=== PATIENT | male | born 1960 | race Caucasian/White ===

== ENCOUNTER 2017-10-25 06:31 | Observation (INO) | payer BC, OTHER ==
[~2017-10-25] VITALS: Ht 175.3 cm; Wt 155.6 kg
[2017-10-25] VITALS (16 sets, daily range): BP systolic 125–151; BP diastolic 63–107
--- NOTE | ~2017-10-25 | EKG ---
[address] [address] ELECTROCARDIOGRAM REPORT Name: JOSS DAILEY Room #: [address] [place] [address] Gerhard#: [id number] Admission: 10/25/17 Attend Phys: Chris Hopper MD, Discharge: 10/26/17 Date of : 64 Report #: [id number] THIS REPORT FOR: //name// [facility] Test Date: 2017-10-26 Test Time: 02:37:09 Pat Name: JOSS DAILEY Department: Room: [facility] Gender: M Crime Victim Specialist: [facility] : 1960 Requested By: Chris Hopper Order Number: [id number] MD: Jesus Rodrigez Measurements Intervals [place] Rate: 84 P: 53 RI: 166 QRS: -4 QRSD: 97 T: 85 QT: 391 QTc: 463 Interpretive Statements Sinus rhythm Consider anterior infarct Compared to ECG 05/26/2015 09:03:09 Myocardial infarct finding now present Poor R-wave progression no longer present Electronically Signed On 10-27-2017 8:15:47 [address] DRIVER by Jesus Rodrigez [email or web address] <ELECTRONICALLY SIGNED> By: Jesus Rodrigez MD 10/27/17 0815 0237 0237 Jesus Rodrigez MD /EPI
--- NOTE | ~2017-10-25 | D ---
[facility] [place] [address] DISCHARGE SUMMARY Name: JOSS DAILEY Room #: 212-P ZAMZAM Hennessy#: [id number] Admission: 10/25/17 Attend Phys: Chris Hopper MD, Discharge: 10/26/17 Date of : 64 Report #: [id number] THIS REPORT FOR: //name// CC: Chris Escalante [facility] COURSE: The patient is a 57-year-old male, patient of Dr. Fish Escalante. We have been following up proximal mid LAD lesion. He began having some stable anginal symptoms, this is from a cardiac catheterization 3 months ago. He was admitted here to repeat cardiac catheterization. Subsequently, he had progression of this proximal mid LAD lesion now to 95+ percent. This involved a right angle takeoff of a diagonal branch, which was moderate in size. I dilated and stented that LAD with a 2.75 x 18 Resolute drug-eluting stent. I postdilated that up to 20 atmospheres, which is 3.3 mm in size with SUSAN grade 3 flow, no dissection or thrombus formation. He is allergic to ASPIRIN, so we have previously treated him with Brilinta 90 mg b.i.d. I will add Pletal 100 mg b.i.d. No lifting for 48 hours. No lying in tub, Jacuzzi, or jones for a week. No MRI or dental work for 3 months. He has a followup scheduled with Dr. Escalante and myself in 3 months. His discharge medications will include Pletal 100 b.i.d., Brilinta 90 b.i.d., albuterol, Lipitor 40, Lasix 80, and Aldactone 50 mg b.i.d. Low fat, low sodium, cholesterol diet. Continue slow gradual weight loss. Aerobic activity strongly recommended. Consideration of bariatric surgery in the future would be of some benefit him, he has lost 10 pounds, he is in the 400 pound range still. DISCHARGE DIAGNOSES: 1. Coronary artery disease, successful PTCA stent of the proximal mid left anterior descending as stated above. 2. Hypertension. 3. Hypercholesterolemia. 4. Morbid obesity. 5. Diabetes. Thank you for assist in the care of this patient. <ELECTRONICALLY SIGNED> By: Chris Hopper MD, [facility] 11/10/17 0800 0822 1010 Chris Hopper MD, FACC /nt
--- NOTE | ~2017-10-25 | CATHLAB ---
[facility] [address] INVASIVE PROCEDURE REPORT Name: JOSS DAILEY Room #: 212-P [facility] IN .R.#: [id number] Admission: 10/25/17 Attend Phys: Chris Hopper, Discharge: 10/26/17 Date of : 64 Date of Service: 10/26/17 1313 Report #: [id number] THIS REPORT FOR: //name// APPROVED REPORT Patient Details Patient Status: Out-Patient Room #: The patient is a 57 year-old male Event Personnel Chris Hopper Concrete Form Setter, Reji Pro Penny, Wes RN Procedures Performed Left Heart Cath w/or w/o Coronaries [id number] [facility] Place w/wo Plasty Single LAD [id number] Hemostasis w/ Mynx Procedure Narrative The Right Groin^ was infiltrated with 1% Lidocaine subcutaneous anesthesia. A PINNACLE 6FR Sheath #[id number] sheath was inserted into the RFA^. Coronary angiography was performed using coronary diagnostic catheters. The right coronary system was accessed and visualized with a JR4 catheter. The left coronary system was accessed and visualized with a JL4 catheter. The left ventricle was accessed and visualized with a PIGTAIL catheter. Closure device was deployed with a 6 Fr MYNXGRIP 6/7F #[id number]. The patient tolerated the procedure well and there were no complications associated with the procedure. There was no hematoma. Intraoperative Conscious Sedation Sedation start time: 8.39 Case end Time: 9.15 Fentanyl 50.0 mcg Versed 2.0 mg Fluoro Time: 6.14 minutes Dose: 1810 mGy Contrast Type and Amount: Omnipaque 190 ml Hemodynamics The aortic pressure is 135/79 mmHg with a mean of 103 mmHg. The left ventricular pressure is 138/13 mmHg with a mean of mmHg. PCI Technique Lesion Percutaneous coronary intervention was performed on the mid left anterior descending artery segment. A LAUNCHER 6FR EBU [address] #[id number] [facility] [address] [place] [address] INVASIVE PROCEDURE REPORT Name: ASHLIEJOSS Room #: 212-P [facility] IN [facility].#: [id number] Admission: 10/25/17 Attend Phys: Chris Hopper, Discharge: 10/26/17 Date of : 64 Date of Service: 10/26/17 1313 Report #: [id number] Guide Catheter was used to engage the LCA ostium. A Luge Wire .014 x 182CM #[id number] Interventional Guidewire was used to cross the lesion. BALLOON DILATION A Balloon catheter Sprinter OTW 2.5 x 15 #[id number] was inserted and inflated up to 12.00atm for 13seconds. Additional Inflation: 14.00atm for 38seconds. STENT DEPLOYMENT A drug-eluting stent RESOLUTE RX 2.75 X 18 #[id number] was inserted and inflated up to 16.00atm for 32seconds. Additional Inflation: 20.00atm for 30seconds. Conclusion #1 successful PTCA stent 98% proximal LAD lesion placement of a 2.75 x 18 resolute drug-eluting stent postdilated 3.3 mm in size diagonal branch is jailed brisk flow into the diagonal branch no occlusive disease #2 left main free of disease #3 circumflex OM nondominant but moderate in size with mild irregularities distally this is a dominant vessel. #4 small nondominant right no occlusive disease #5 normal left ventricular size and systolic function EF 60% Recommendations plan continue aggressive risk factor modification. No lifting for 48 hours no line tub Jacuzzi or [place] for a week. No MRI or dental work for 3 months. Patient is ASPIRIN allergic. Will use Brilinta il 90 mg twice a day and will add Pletal 100 mg twice a day. <ELECTRONICALLY SIGNED> By: Chris Hopper MD, FACC 10/26/17 1313 12 12 Chris Hopper MD, FACC /INF
--- NOTE | ~2017-10-25 | EKG ---
[address] [address] ELECTROCARDIOGRAM REPORT Name: JOSS DAILEY Room #: 212-[facility] M.RAlisa#: [id number] Admission: 10/25/17 Attend Phys: Chris Hopper MD, Discharge: 10/26/17 Date of : 64 Report #: [id number] THIS REPORT FOR: //name// [facility] Test Date: 2017-10-26 Test Time: 07:13:27 Pat Name: JOSS DAILEY Department: Room: 212 Gender: M Principle Software Engineer: harish : 1960 Requested By: Chely Napoles Order Number: [id number] MD: Jesus Rodrigez Measurements Intervals [place] Rate: 82 P: 28 MD: 155 QRS: 2 QRSD: 96 T: 69 QT: 391 QTc: 457 Interpretive Statements Sinus rhythm Consider anterior infarct Compared to ECG 05/26/2015 09:03:09 Myocardial infarct finding now present Poor R-wave progression no longer present Electronically Signed On 10-27-2017 8:15:58 POST TRONIC MACHINE OPERATOR by Jesus Rodrigez [email or web address] <ELECTRONICALLY SIGNED> By: Jesus Rodrigez MD 10/27/1715 2 2 Jesus Rodrigez MD /EPI
--- NOTE | ~2017-10-25 | EKG ---
[place] [address] [facility] [place] [address] ELECTROCARDIOGRAM REPORT Name: JOSS DAILEY Room #: 212-[facility]..#: [id number] Admission: 10/25/17 Attend Phys: Chris Hopper MD, Discharge: 10/26/17 Date of : 64 Report #: [id number] THIS REPORT FOR: //name// [facility] Test Date: 2017-10-25 Test Time: 07:03:35 Pat Name: JOSS DAILEY Department: Room: [facility] Gender: M Rehabilitation Services Director: Hebert TREJO : 1960 Requested By: Chris Hopper Order Number: [id number] MD: Luiz Pearce Measurements Intervals [place] Rate: 90 P: 45 OR: 164 QRS: -12 QRSD: 96 T: 88 QT: 374 QTc: 458 Interpretive Statements Sinus rhythm Poor R wave progression Compared to ECG 05/26/2015 09:03:09 No significant change was found Electronically Signed On 10-27-2017 7:40:04 ALGORITHM DESIGN ENGINEER by Luiz Pearce [email or web address] <ELECTRONICALLY SIGNED> By: Luiz Pearce MD, [facility] 10/27/17 0740 2 2 Luiz Pearce MD, [facility] /EPI
[~2017-10-25 06:31] MED LIST: ALDACTONE25 MG PO; BYSTOLIC 5 MG5 M1 PO; CHLORTHALIDONE25 MG PO; COZAAR 50 MG TA50 M2 PO; DEMADEX20 MG PO; GLUCOPHAGE1000 MG PO; K-DUR 20 MEQ T20 MEQ PO; LANTUS100 UNIT/M SUBQ; LASIX 40 MG TAB40 M2 PO; LORZONE375 MG PO; PRILOSEC40 MG PO; VENTOLIN HFA 1818 GM INH
[2017-10-25] MEDS ORDERED: LASIX 80 MG TAB80 MG PO (06:49)
[2017-10-25] MEDS ORDERED: ATORVASTATIN CA40 MG PO (06:49)
[2017-10-25] MEDS ORDERED: BRILINTA60 MG PO (06:51)
[2017-10-25] MEDS ORDERED: ALTACE10 MG PO (06:52)
[2017-10-25] MEDS ORDERED: BRILINTA90 MG PO (15:43)
[2017-10-26 00:30] VITALS: BP 140/72
[2017-10-26 02:24] VITALS: BP 137/68
[2017-10-26 03:31] LABS: HEMATOCRIT 42.4 % (42.0-52.0); HEMOGLOBIN 14.1 gm/dL (14.0-18.0); MCH 28.2 pg (26.0-34.0); MCHC 33.2 g/dL (28.0-37.0); RBC 4.99 mil/uL (4.50-6.00); RDW 14.2 % (10.5-14.5); WBC 8.6 thou/uL (4.0-11.0)
[2017-10-26 03:36] VITALS: BP 120/51
[2017-10-26 03:45] LABS: ANION GAP 6 mmol/L (7-16); BUN 27 mg/dL (7-18); CHLORIDE 95 mmol/L (98-107); CO2 31 mmol/L (21-32); CREATININE 1.1 mg/dL (0.7-1.3); GLUCOSE 371 mg/dL (74-106); POTASSIUM 4.5 mmol/L (3.5-5.1); SODIUM 132 mmol/L (136-145); TROPONIN-I < 0.04 ng/mL (<0.06)
[2017-10-26 05:38] VITALS: BP 120/51
[2017-10-26 07:59] VITALS: BP 139/77
[2017-10-26] MEDS ORDERED: CILOSTAZOL 100100 M1 PO (08:23)
[2017-10-26 10:51] VITALS: BP 139/77
[2018-05-31] MEDS ORDERED: LYRICA 50 MG50 MG PO (01:21)
[2018-05-31] MEDS ORDERED: SEROQUEL 50 MG50 MG PO (01:22)
[2018-05-31] MEDS ORDERED: MIRAPEX 0.250.25 M1 PO (01:23)
[2018-05-31] MEDS ORDERED: PROTONIX40 M1 PO (01:32)
[2018-05-31] MEDS ORDERED: PERCOCET PO (01:34)
[2018-05-31] MEDS ORDERED: SORINE 80 MG TA80 M1 PO (01:35)
[2018-05-31] MEDS ORDERED: SPIRONOLACTONE25 M1 PO (01:36)
[2018-05-31] MEDS ORDERED: ELIQUIS5 MG PO (01:37)
[2018-05-31] MEDS ORDERED: ATORVASTATIN CA40 MG PO (01:38)
[2018-05-31] MEDS ORDERED: CEFUROXIME500 MG PO (01:39)
[2018-05-31] MEDS ORDERED: CLEOCIN HCL300 MG PO (01:41)
[2018-05-31] MEDS ORDERED: PLAVIX 75 MG TA75 M1 PO (01:41)
[2018-05-31] MEDS ORDERED: LASIX 80 MG TAB80 MG PO (01:43)
[2018-05-31] MEDS ORDERED: HUMULIN N100 UNIT/1 SUBQ (20:13)
[2018-05-31] MEDS ORDERED: HUMULIN R100 UNIT/M SUBQ (20:16)
[2018-06-11] MEDS ORDERED: DEMADEX20 MG PO (14:04)
[2018-06-11] MEDS ORDERED: RAMIPRIL5 MG PO (16:05)
[2018-06-11] MEDS ORDERED: LEVALBUTER0.63 MG/3 NASAL (16:10)
[2018-06-12] MEDS ORDERED: ALTACE10 MG PO (10:23)
[2018-06-12] MEDS ORDERED: XOPENEX0.63 MG/3 NASAL (10:24)
[2018-06-15] MEDS ORDERED: KEFLEX500 M1 PO (13:53)
[2018-06-15] MEDS ORDERED: PERCOCET 10-321 EACH PO (13:55)
== END 2017-10-26 11:45 | disposition home or self-care (01) ==
LOC: CATH 06:31 → 2N 07:36 → CATH 08:04 → ENTRNSPT 10-26 11:24 → EDTRNSPTSTS 10-26 11:26 → 2N 10-26 11:45
PROVIDERS: Internal Medicine Cardiovascular Disease
DX: I25.10 Atherosclerotic heart disease of native coronary artery without angina pectoris (principal); I10 Essential (primary) hypertension; E78.00 Pure hypercholesterolemia, unspecified; E66.01 Morbid (severe) obesity due to excess calories; E11.9 Type 2 diabetes mellitus without complications; K21.9 Gastro-esophageal reflux disease without esophagitis; G47.33 Obstructive sleep apnea (adult) (pediatric)

== ENCOUNTER 2018-12-29 16:36 | Inpatient (IN) | payer BC, OTHER ==
[~2018-12-29] VITALS: Ht 177.8 cm; Wt 165.8 kg
--- NOTE | ~2018-12-29 | EEG ---
[facility] [place] [address] ELECTROENCEPHALOGRAM Name: JOSS DAILEY Room #: 238-P ADM IN M.R.#: [id number] ������������������ Admission: 12/29/18 ������������������ Attend Phys: Jazmin Jensen MD Discharge: ������������������ Date of : 64 Report #: [id number] ����������������������������������������������������������������� [id number] THIS REPORT FOR: //name// CC: JEANNE Jensen DATE OF SERVICE: 12/31/2018 INTERPRETATION: This patient is being evaluated for the possibility of hypoxic encephalopathy. EEG was done by placing the electrode by standard 10-20 system of electrode placement. Both referential and sequential montages were used for recording. Background activity in this patient's EEG is about 4-5 Hz and 10-15 microvolts. This is a low voltage and pretty significantly abnormal EEG. Triphasic waves appeared to be present in the frontally predominant fashion. Photic stimulation is unremarkable. IMPRESSION: This is a severely abnormal EEG, which is consistent with the diagnosis of encephalopathy. However, well-defined cortical activity is still present. Thank you very much for this referral. ���������������������������������������� ���������������������������������������� By: ��������������������������������������������� 1421 1702 Martin Harper MD /nt
--- NOTE | ~2018-12-29 | HC ---
[facility] [place] [address] CONSULTATION Name: ASHLIEJOSS Room #: 238-P ADM IN M.R.#: [id number] Admission: 12/29/18 ������������������ Attend Phys: Karl Zarate MD Discharge: ������������������ Date of : 64 Report #: [id number] THIS REPORT FOR: //name// CC: Karl DECKER DATE OF SERVICE: 12/30/2018 REASON FOR THE CONSULTATION: Post-cardiac arrest, acute kidney injury. HISTORY OF PRESENT ILLNESS: This is limited given the fact that the patient is currently intubated. He is a morbidly obese patient with diabetes mellitus, hypertension, obstructive sleep apnea, Charcot right ankle, status post fusion in 11/21/2018 for which he was operated upon in [place]. His hospital course there was complicated and he stayed for about 20 days. He had acute kidney injury per records. Then, he was discharged to a rehab facility. He developed heart failure and acute kidney injury and was admitted to [facility]. He was discharged back to rehab; however, on this past Monday, the patient became ill and was admitted to [facility] with shortness of breath and hypoxemia. Apparently, the patient was transported here after discussing his case with his metal sprayer production and transportation medical personnel reported that the patient became unresponsive. He had an episode of PEA and asystole. He also had ventricular fibrillation and required a code blue initiation. He was intubated accordingly and was in acute respiratory failure with very bad CO2 narcosis. Creatinine was around 1.2 as of 11/2017. They had been steadily rising ever since. Most recent labs from today revealed that the patient's sodium is 133, potassium 6.2, BUN is 54 and a creatinine of 2.7. Phosphorus was 6. He has a mildly elevated troponin. I am being consulted to manage his acute kidney injury. MEDICATIONS: 1. Sotalol. 2. Spironolactone. 3. Atorvastatin. 4. Ramipril. 5. Torsemide. PAST MEDICAL HISTORY: 1. Diabetes mellitus. 2. Hypertension. 3. Coronary artery disease. 4. Obstructive sleep apnea. 5. Left hip dislocation. 6. Morbid obesity. 7. Cellulitis of the right elbow. 8. Ischemic heart disease. [address] [address] CONSULTATION Name: JOSS DAILEY Room #: 238-P [facility] IN .R.#: [id number] Admission: 12/29/18 ������������������ Attend Phys: Karl Zarate MD Discharge: ������������������ Date of : 64 Report #: [id number] 9. Charcot right ankle. SOCIAL HISTORY: No reported drug or alcohol abuse. FAMILY HISTORY: Unobtainable given the patient's mental status. REVIEW OF SYSTEMS: Unobtainable given the patient's mental status. PHYSICAL EXAMINATION: GENERAL: He is intubated, maintained on dopamine. VITAL SIGNS: Blood pressure is 140/78, pulse rate is 60. HEAD AND NECK: Elevated jugular venous pressure. CHEST: Crackles bilaterally. CARDIOVASCULAR: Distant. ABDOMEN: Soft, nontender, morbidly obese. LOWER EXTREMITIES: +3 edema. LABORATORY DATA: Reviewed. Blood gas revealed a pH of 7.3 with a pCO2 of 56. Lactate is 2.3. Sodium is 133. Potassium 6.2. BUN is 54, creatinine is 2.7. ASSESSMENT, IMPRESSION, PLAN: 1. Acute kidney injury. 2. Status post cardiac arrest with ventricular fibrillation pulseless electrical activity and asystole. 3. Acute respiratory failure. 4. Elevated lactic acid. 5. Coronary artery disease. 6. Diabetes mellitus. 7. Hypertension. 8. Very critical and sick condition. Currently, we will manage his hyperkalemia appropriately with the appropriate medications. 9. We will initiate a Lasix drip. 10. Pulmonary managing his respiratory acidosis and CO2 narcosis. 11. Hemodynamic support with pressors. 12. Avoid fluid. 13. Septic workup had been initiated. 14. Avoid nephrotoxins. 15. Very critical and sick condition. We will continue to follow along and discuss further plans including hemodialysis with his family members. ��������������������������������������������� ���������������������������������������� By: ��������������������������������������������� 0903 2216 Ryan Denton MD /dk
--- NOTE | ~2018-12-29 | EEG ---
[facility] [place] [address] ELECTROENCEPHALOGRAM Name: JOSS DAILEY Room #: 238-P ADM IN M.R.#: [id number] ������������������ Admission: 12/29/18 ������������������ Attend Phys: Jazmin Jensen MD Discharge: ������������������ Date of : 64 Report #: [id number] ����������������������������������������������������������������� [id number] THIS REPORT FOR: //name// CC: JEANNE Jensen DATE OF SERVICE: 01/02/2019 This patient is being evaluated for hypoxic encephalopathy. EEG was done by placing the electrode by standard 10-20 system of electrode placement. Both referential and sequential montages were used for recording. Background activity is extremely low voltage and is seen only on 2 or 3 microvolt, may be about 4-5 Hz and almost always less than 5 microvolt. Photic stimulation is unremarkable. IMPRESSION: This is a severely abnormal EEG consistent with severe encephalopathy. EEG has deteriorated since last time. Only very low voltage activity appeared to be present. Clinical correlation is recommended. ���������������������������������������� ���������������������������������������� By: ��������������������������������������������� 1236 1320 Martin Harper MD /nt
--- NOTE | ~2018-12-29 | HC ---
[facility] [place] [address] CONSULTATION Name: ASHLIEJOSS Room #: 238-P ADM IN .R.#: [id number] Admission: 12/29/18 ������������������ Attend Phys: Karl Zarate MD Discharge: ������������������ Date of : 64 Report #: [id number] THIS REPORT FOR: //name// CC: Karl DECKER DATE OF SERVICE: 12/30/2018 CONSULTATION: Infectious Diseases. HISTORY OF PRESENT ILLNESS: The patient is a 58-year-old white male status post cardiac arrest. Infectious Disease consultation was requested to evaluate and treat for possible infection component. The patient was in his usual health until he underwent surgery for a Charcot joint in his ankle on 11/21/[address] Whitten at [facility]. His postoperative course was complicated by his diabetes, heart failure and renal insufficiency. He required 20 days in the hospital before he was stabilized and then discharged around 12/11/2018 to acute rehab in [place], [place], where he lives. The patient was in rehab for about 7 days when he again had exacerbation of heart and kidney failure. He was admitted to the local acute care hospital [facility] for about 4 days and then returned to rehab. He continued at rehab until 12/21/2018, when again he had to be admitted to acute care in [place] for the same issue. His doctors there were having issues with fluid management with the heart failure and kidney failure. So, it was elected to transfer him to [facility] for a more comprehensive management. He was placed in a transport van of come to [facility] on 12/29/2018. While in transport, the patient became unresponsive and the transport initiated a code blue event. 911 was activated and the EMS from [facility] met the transport in the field and took over the code. The patient required CPR, had several doses of epinephrine and was ventilated via a bag mask device as he was transported to [facility], which was the [facility]. The ER there continued the code blue event, including intubation, mechanical ventilation, epinephrine cardioversion and medication. The patient did return to pulseless electrical activity and then return of the spontaneous circulation. He then was placed in the ambulance and transported acutely to [facility], where he arrived last night at 5 minutes before midnight. He was admitted to the ICU. He continued on ventilation and was treated with the hypothermic protocol for anoxic brain injury. In this setting, Infectious Disease consultation was requested. PAST MEDICAL HISTORY: The patient has a past history, which includes diabetes. His says his hemoglobin A1c would run around 10. He has hyperlipidemia, hypertension and morbid obesity. Other diagnoses include coronary artery disease with 2 episodes of angioplasty, diastolic dysfunction with a preserved ejection fraction and COPD. His baseline creatinine during the previous hospitalizations was 1.6 to 2. Apparently at one point, it was as high as 2.[address] [address] CONSULTATION Name: POSTJOSS HELTONN Room #: 238-P [facility] IN M.R.#: [id number] Admission: 12/29/18 ������������������ Attend Phys: Karl Zarate MD Discharge: ������������������ Date of : 64 Report #: [id number] during the course of the described events. ALLERGIES: THE PATIENT HAS ALLERGIES TO [place], WHICH CAUSES A COUGH AND NONSTEROIDAL ANTI-INFLAMMATORY DRUGS BECAUSE OF POTENTIAL RENAL TOXICITIES. FAMILY HISTORY: Positive for diabetes. SOCIAL HISTORY: The patient is . He lives in [place], [place] with his . They have a grown son. He worked as an insurance independent agent. No history of tobacco, alcohol or drugs. REVIEW OF SYSTEMS: Unavailable as the patient is sedated on a ventilator. PHYSICAL EXAMINATION: GENERAL: On examination, the patient appears his stated age, unresponsive on a ventilator, but comfortable and in no distress. VITAL SIGNS: Show the patient's temperature is 93.2 on the hypothermia protocol. Blood pressure 149/78, pulse 60 and respirations 22. SKIN: Cool and has some ecchymoses from medical interventions, but no other rash, lesion or exanthem. The right lower extremity is in a fiberglass cast. The says this was last changed about 2 weeks ago and the wound looks fine and most of the stitches were removed. ENT EXAMINATION: Unremarkable, except for the expected nasogastric and endotracheal tubes. HEART: Heart sounds distant S1, S2. LUNGS: Breath sounds diminished, but normal. ABDOMEN: Belly is obese, soft, somewhat tympanitic, without any signs of tenderness. No peripheral edema. LABORATORY DATA: The white count is 10.6, hemoglobin 11.8 and platelet 175,000. Electrolytes: Sodium 133, potassium 6.2, chloride 92, bicarbonate 34, BUN 54 and creatinine 2.7 with very little urine output. Liver function tests show early elevation of SGOT at 103, SGPT 79 and alkaline phosphatase at 157. BNP elevated at 2762. Procalcitonin elevated at 8.8. Lactate was 8.7, now down to 2.1. Chest x-ray shows no acute infiltrates. SUMMARY: In summary, we have a diabetic with preexisting heart disease, lung disease and kidney disease, who had a code blue event while in transport to acute care. He had apparently a fairly extensive cardiac resuscitation and is now in the ICU post code. One should consider the possibility that infection might have been one of the events precipitating the acute heart attack, although there is nothing in the history to suggest anything like that. Prolonged code blue event certainly puts the patient at risk for an aspiration. The patient had been in acute care or rehabilitation since 11/21/2018. So, he would certainly be colonized with [facility] [address] [place] [address] CONSULTATION Name: ASHLIEJOSS Room #: 238-P [facility] IN [facility]#: [id number] Admission: 12/29/18 ������������������ Attend Phys: Karl Zarate MD Discharge: ������������������ Date of : 64 Report #: [id number] nosocomial tracy. At this time, I concur with the use of broad-spectrum antibiotic therapy, including vancomycin, Zosyn and Levaquin at doses appropriate for renal failure, pending results of the cultures. We have cultures of blood and sputum. I will order urine. We should have an orthopedist coordinating with Dr. Whitten and possibly remove the cast to examine the wound to make sure this is not a source of infection as well. I appreciate the opportunity of input in the care of this complex gentleman. Dr. Moran will return tomorrow and assume followup Infectious Disease care. If there is no sign of infection and just a cardiac arrest, we may be able to discontinue antibiotics relatively soon. However, given the patient's critical condition, empiric therapy for now would be appropriate. Thank you for this consultation. ��������������������������������������������� ���������������������������������������� By: ��������������������������������������������� 1353 0209 Wilfred Zaldivar MD /dk
[~2018-12-29 16:36] MED LIST changes: +ALTACE10 MG PO; +ATORVASTATIN CA40 MG PO; +BRILINTA60 MG PO; +BRILINTA90 MG PO; +CEFUROXIME500 MG PO; +CILOSTAZOL 100100 M1 PO; +CLEOCIN HCL300 MG PO; +ELIQUIS5 MG PO; +HUMULIN N100 UNIT/1 SUBQ; +HUMULIN R100 UNIT/M SUBQ; +KEFLEX500 M1 PO; +LASIX 80 MG TAB80 MG PO; +LEVALBUTER0.63 MG/3 NASAL; +LYRICA 50 MG50 MG PO; +MIRAPEX 0.250.25 M1 PO; +PERCOCET 10-321 EACH PO; +PERCOCET PO; +PLAVIX 75 MG TA75 M1 PO; +PROTONIX40 M1 PO; +RAMIPRIL5 MG PO; +SEROQUEL 50 MG50 MG PO; +SORINE 80 MG TA80 M1 PO; +SPIRONOLACTONE25 M1 PO; +XOPENEX0.63 MG/3 NASAL
[2018-12-30] VITALS (154 sets, daily range): BP systolic 77–178; BP diastolic 36–96
[2018-12-30 00:38] LABS: BE(vivo) 6.2 mmol/L (-2 to +3); HCO3 36.5 mmol/L (22.0-26.0); PO2 475.1 mmHg (80.0-100.0); sO2 99.8 % (92.0-98.0)
[2018-12-30 00:39] LABS: PCO2 89.3 mmHg (35.0-45.0); pH 7.229 (7.360-7.450)
--- NOTE | 2018-12-30 01:00 | NUR ---
Pt admit in ICU for post witness cardiac arrest. He is being tx to room 238 , accompanied by EMS staffs. He appears unresponsive. No sedation .GCS 3 upon arrival. Currently on vent, RR mid 20's. [place] For[place] sputum is notes via ETT. Lung sound very coarse. O2 sat 100 . NGT on Left nare, some bloody drainage notes possible trauma from NGT placement. He is on dopamine gtt at 5 mcg/kg min when he arrived. NSR on monitor. Will obtain EKG sta.Poor IV access. Only LAC IV is working. LLE IO is unable to flush. it seems to be clotted off. Multiple RNs attempted to gain IVs access w/o any success. Will notify for consultation and assist for line placement. Cooling blanket applied. Initiate hypothermia protocol at 0045. Will continue to monitor him closely.
--- NOTE | 2018-12-30 01:15 | NUR ---
Spoke with pt's regarding of central line placement. She is awares of risks and benefits. Consent obtained for Central line placement by .
[2018-12-30 01:37] LABS: HEMATOCRIT 38.5 % (42.0-52.0); HEMOGLOBIN 11.8 gm/dL (14.0-18.0); MCH 27.3 pg (26.0-34.0); MCHC 30.7 g/dL (28.0-37.0); MCV 88.8 fL (80.0-100.0); PLATELET COUNT 175 thou/uL (150-400); RBC 4.34 mil/uL (4.50-6.00); RDW 18.1 % (10.5-14.5); WBC 10.6 thou/uL (4.0-11.0)
--- NOTE | 2018-12-30 01:50 | NUR ---
is here. He tied to place central line multiple time w/o any success. ER nurse able to gained access after multiple attempts. Will obtain labs per hypothermia protocol.
--- NOTE | 2018-12-30 01:51 | NUR ---
ATTEMPTED TO PLACE CENTRAL LINE MULTIPLE TIME W/O ANY SUCCESS. SEVERAL RN ALSO TRIED TO GET AN ACCESS. I/O IS CLOTTED OFF. ER NURSE ABLE TO PLACED IV ON RT AC. BLOOD OBTAINED AND SENT TO LAB.
[2018-12-30 02:06] LABS: BE(vivo) 7.1 mmol/L (-2 to +3); HCO3 36.7 mmol/L (22.0-26.0); pH 7.269 (7.360-7.450); sO2 93.1 % (92.0-98.0)
[2018-12-30 02:19] LABS: ALBUMIN 3.4 g/dL (3.4-5.0); CALCIUM 8.8 mg/dL (8.5-10.1); CREATININE 2.4 mg/dL (0.7-1.3); TOTAL BILIRUBIN 1.5 mg/dL (<0.1-1.0); TOTAL PROTEIN 7.8 g/dL (6.4-8.2)
[2018-12-30 02:22] LABS: POTASSIUM 6.3 mmol/L (3.5-5.1)
[2018-12-30 02:27] LABS: ABSOLUTE NEUTROPHILS 9.4 thou/uL (1.4-8.2); ANISOCYTOSIS 2+; LARGE PLATELETS FEW; MYELOCYTES 1 %
[2018-12-30 03:55] LABS: APTT 36.2 Seconds (24.5-32.8); INR 1.1
[2018-12-30 04:08] LABS: D-DIMER 3.43 ug/mLFEU (0.19-0.50)
[2018-12-30 04:13] LABS: FIBRINOGEN 503.5 mg/dL (210-360)
--- NOTE | 2018-12-30 07:00 | NUR ---
Pt remain in critical conditions. Continue to be on hypothermia protocol. Unable to start insulin gtt due to no access. Order received from to place PICC line this am.
[2018-12-30 07:56] LABS: BE(vivo) 4.6 mmol/L (-2 to +3); HCO3 31.3 mmol/L (22.0-26.0); PCO2 56.6 mmHg (35.0-45.0); pH 7.361 (7.360-7.450); sO2 97.6 % (92.0-98.0)
[2018-12-30 08:19] LABS: APTT 37.6 Seconds (24.5-32.8); INR 1.2; PROTIME 12.8 Seconds (9.3-11.4)
[2018-12-30 08:22] LABS: CALCIUM 8.5 mg/dL (8.5-10.1); CREATININE 2.7 mg/dL (0.7-1.3); MAGNESIUM 2.2 mg/dL (1.8-2.4)
[2018-12-30 08:25] LABS: POTASSIUM 6.2 mmol/L (3.5-5.1); TROPONIN-I 1.02 ng/mL (<0.06)
--- NOTE | 2018-12-30 12:54 | 2DMMODE ---
[facility] [place] [address] 2 D/M-MODE ECHOCARDIOGRAM Name: JOSS DAILEY Room #: 238-P ADM IN M.R.#: [id number] ������������� Admission: 12/29/18 ������������� Attend Phys: Karl Zarate MD Discharge: ��� ������������� ��� Date of : 64 Date of Service: 12/30/18 1254 �� Report #: [id number] �������� ��������������������������������������������[id number] THIS REPORT FOR: //name// APPROVED REPORT Study performed: 12/30/2018 11:55:51 EXAM: Comprehensive 2D, Doppler, and color-flow Echocardiogram Patient Location: ICU Room #: 238 Status: stat BSA: 2.76 HR: 56 bpm BP: 154/86 mmHg Rhythm: Bradycardia Other Information Study Quality: Technically DifficultTechnically Limited Indications S^P Arrest Echo Enhancing Agent Indication: Endocardial border delineation Agent(s) / Amount(s) Used: Optison 3 cc 2D Dimensions IVSd: 10.47 (7-11mm) LVOT Diam: 21.60 (18-24mm) LVDd: 58.79 mm PWd: 10.94 (7-11mm) Ascending Ao: 32.57 (22-36mm) LVDs: 45.90 (25-40mm) Aortic Root: 30.92 mm Aortic Valve AoV Peak Deny.: 1.12 m/s AO Peak Gr.: 5.02 mmHg LVOT Max P.92 mmHg LVOT Max V: 0.85 m/s HEDY Vmax: 2.79 cm2 Mitral Valve E/A Ratio: 1.6 MV Decel. Time: 188.57 ms MV E Max Deny.: 1.06 m/s MV A Deny.: 0.65 m/s [facility] [place] [address] 2 D/M-MODE ECHOCARDIOGRAM Name: JOSS DAILEY Room #: 238-[facility] IN [facility].#: [id number] ������������� Admission: 12/29/18 ������������� Attend Phys: Karl Zarate MD Discharge: ��� ������������� ��� Date of : 64 Date of Service: 12/30/18 1254 �� Report #: [id number] �������� ��������������������������������������������[id number] MV PHT: 54.68 ms IVRT: 110.73 ms Pulmonary Valve PV Peak Deny.: 0.96 m/s PV Peak Gr.: 3.66 mmHg Left Ventricle Left ventricle is dilated. There is normal LV segmental wall motion. There is normal left ventricular wall thickness. The left ventricular systolic function is normal. The left ventricular ejection fraction is within the normal range. LVEF is 50% This study is not technically sufficient to allow evaluation of the LV diastolic function. Right Ventricle Right ventricle is not well visualized. Right ventricle is grossly normal in size. The right ventricular systolic function is normal. Atria Left atrium is not well visualized. Right atrium is not well visualized. Aortic Valve The aortic valve is not well visualized. Aortic valve is grossly normal in structure. No aortic regurgitation is present. There is no aortic valvular stenosis. Mitral Valve The mitral valve is normal in structure. There is no mitral valve regurgitation noted. No evidence of mitral valve stenosis. Tricuspid Valve The tricuspid valve is not well visualized. There is no tricuspid valve regurgitation noted. Pulmonic Valve Pulmonic valve is not well visualized. There is no pulmonic valvular regurgitation. Great Vessels The aortic root is normal in size. IVC is not well visualized. Pericardium There is no pericardial effusion. [facility] [place] [address] 2 D/M-MODE ECHOCARDIOGRAM Name: JOSS DAILEY Room #: 238-P ADM IN M.R.#: [id number] ������������� Admission: 12/29/18 ������������� Attend Phys: Karl Zarate MD Discharge: ��� ������������� ��� Date of : 64 Date of Service: 12/30/18 1254 �� Report #: [id number] �������� ��������������������������������������������[id number] <Conclusion> There is normal left ventricular wall thickness. The left ventricular systolic function is normal. The left ventricular ejection fraction is within the normal range. LVEF is 50% Right ventricle is not well visualized. Right ventricle is grossly normal in size. Left atrium is not well visualized. Right atrium is not well visualized. The aortic valve is not well visualized. Aortic valve is grossly normal in structure. No aortic regurgitation is present. There is no aortic valvular stenosis. The mitral valve is normal in structure. There is no mitral valve regurgitation noted. No evidence of mitral valve stenosis. The tricuspid valve is not well visualized. There is no tricuspid valve regurgitation noted. IVC is not well visualized. There is no pericardial effusion. ��������������������������������������������� <ELECTRONICALLY SIGNED> ���������������������������������������� By: Jesus Rodrigez MD ��������������������������������������������� 12/30/18 1254 1254 1254 Jesus Rodrigez MD /INF
[2018-12-30 13:50] LABS: BASOPHILS 0.4 % (0.0-2.0); HEMATOCRIT 35.8 % (42.0-52.0); HEMOGLOBIN 11.2 gm/dL (14.0-18.0); LYMPHOCYTES 2.9 % (24.0-44.0); MCH 27.1 pg (26.0-34.0); MCHC 31.3 g/dL (28.0-37.0); MCV 86.5 fL (80.0-100.0); MONOCYTES 6.9 % (1.0-8.0); PLATELET COUNT 166 thou/uL (150-400); POLYS 89.8 % (36.0-66.0); RBC 4.14 mil/uL (4.50-6.00); RDW 17.9 % (10.5-14.5); WBC 7.8 thou/uL (4.0-11.0)
[2018-12-30 13:58] LABS: ALBUMIN 2.8 g/dL (3.4-5.0); CREATININE 2.8 mg/dL (0.7-1.3); PHOSPHORUS 6.4 mg/dL (2.5-4.9); POTASSIUM 5.3 mmol/L (3.5-5.1)
[2018-12-30 14:01] LABS: CALCIUM 8.1 mg/dL (8.5-10.1); CREATININE 2.8 mg/dL (0.7-1.3); MAGNESIUM 2.1 mg/dL (1.8-2.4); PHOSPHORUS 6.3 mg/dL (2.5-4.9); POTASSIUM 5.3 mmol/L (3.5-5.1)
[2018-12-30 14:01] LABS: APTT 38.4 Seconds (24.5-32.8); INR 1.3; PROTIME 13.5 Seconds (9.3-11.4)
[2018-12-30 14:08] LABS: TROPONIN-I 0.87 ng/mL (<0.06)
--- NOTE | 2018-12-30 14:26 | NUR ---
VASCULAR ACCESS CONSULTED FOR A CL FOR THIS PT WHO IS A POST CODE AND NOW HAS A NONFUNCTIONING IO IN HIS LT LEG. UNSUCCESSFUL ATTEMPTS BY MD'S PRIOR TO ARRIVAL. PT IS MORBILY OBESE AND HIS RT IJ IS NON-COMPRESSIBLE VIA US ASSESS. LT IJ WAS WIDELY PATENT BUT SEVERAL CM DEEP IN NECK FOLDS. TUNNELED NEEDLE BACK IN CHEST TO KEEP THE INSERTION SITE OUT OF SKIN FOLDS. THE CATHETER ENTERS THE VESSEL IN THE UPPER IJ LEVEL AND THE LUNG WAS NOT COMPROMISED. THE CXR REVEALED THE TIP IN THE SVC AND IS RELEASED FOR USE. LINE IS NOT COILED IN THE IJ, IT IS MINI-TUNNLED UP TO THE UPPER IJ AND DROPPED DOWN.
--- NOTE | 2018-12-30 17:50 | HC ---
[facility] [address] [place] [address] CONSULTATION Name: JOSS DAILEY Room #: 238-P ADM IN M.R.#: [id number] Admission: 12/29/18 ������������������ Attend Phys: Karl Zarate MD Discharge: ������������������ Date of : 64 Report #: [id number] THIS REPORT FOR: //name// CC: Karl DECKER REFERRAL PHYSICIAN: Dr. Zarate. REASON FOR REFERRAL: Cardiac arrest. HISTORY OF PRESENT ILLNESS: The patient is a 58-year-old white male who was transferred from [facility] following a cardiac arrest. A pulmonary consultation was requested. The patient was initially hospitalized at [facility] for a few days for heart failure and pneumonia along with acute renal injury. Clinically, he was not improving. Decision was made to transfer the patient to [facility]. He is followed by Dr. Chris Hopper, his product marketing engineer. According to records, en route on the highway the patient became unresponsive. On the telemetry he was in PEA and then asystole. CPR was given. Call was made to [facility]. Following the cardiac arrest CPR was given. The patient became asystolic and PEA again. He was given epinephrine x 2. Subsequently, rhythm changed to ventricular fibrillation. He was cardioverted with 200 joules. Sinus rhythm was obtained. CPR was resumed as the providers could not feel a pulse. He was then seen at the local Emergency Room at [place], [place]. He was intubated with an 8 mm ET tube. Placement was confirmed with a chest x-ray. Chest x-ray revealed bilateral patchy infiltrates. There was pink frothy sputum noted from the ET tube. The patient was then transferred to [facility] ICU. He has a peripheral IV and an intraosseous IV placed. PAST MEDICAL HISTORY: Notable for morbid obesity, SHANA, coronary artery disease, hypertension, paroxysmal atrial fibrillation, kidney injury. He apparently was recently hospitalized at [facility] for an ankle fracture for which he underwent surgery. He was there for about a month and a half. PAST SURGICAL HISTORY: As mentioned above. ALLERGIES: ASPIRIN, LOSARTAN, NONSTEROIDAL. MEDICATIONS: List on transfer in the [facility]. FAMILY HISTORY: Noncontributory. [facility] [address] [place] [address] CONSULTATION Name: JOSS DAILEY Room #: 238-P [facility] IN M.R.#: [id number] Admission: 12/29/18 ������������������ Attend Phys: Karl Zarate MD Discharge: ������������������ Date of : 64 Report #: [id number] SOCIAL HISTORY: No history of tobacco or alcohol use. REVIEW OF SYSTEMS: Deferred as the patient is intubated. PHYSICAL EXAMINATION: GENERAL: He is not responsive. VITAL SIGNS: Pulse is 90, blood pressure reads systolic around 116-130 mmHg, though I could not feel a femoral pulse or a carotid pulse adequately. This may be related to body habitus. HEENT: Normocephalic, atraumatic. The patient is orally intubated. There is pink frothy sputum emanating from the ET tube. NECK: Supple. No masses felt. CHEST: Coarse breath sounds bilaterally. CARDIOVASCULAR: Heart sounds are distant. No obvious murmurs or gallop. Pulse again, I could not adequately feel a femoral pulse or a radial pulse, though the Dinamap is reading a blood pressure around 110-130 mmHg systolic. ABDOMEN: Obese, soft, nontender, no masses felt. GENITOURINARY: Deferred. RECTAL: Deferred. EXTREMITIES: Cool to touch, moderately cyanotic. Note the patient was recently placed on hypothermia protocol. NEUROLOGIC: Deferred at this time. LABORATORY DATA: Chest x-ray shows increased interstitial marking, patchy infiltrates seen in the mid right lung field, borderline cardiomegaly. ET tube is approximately 3 cm above the luis. Arterial blood gas performed revealed pH 7.22, pCO2 of 89, pO2 of 475. Rest of the laboratory data is pending. Laboratory data from the outside hospital include electrolytes from earlier today, sodium 138, potassium 4.9, chloride 96, CO2 is 44, BUN is 40, creatinine is 2.4. EKG shows left bundle branch block. IMPRESSION: 1. Out of hospital cardiac arrest with initial rhythm showing pulseless electrical activity, then asystole, and eventually ventricular fibrillation. Epinephrine was given along with cardioversion. He is currently in normal sinus rhythm. Etiology at this time appears to be acute congestive heart failure as a cause for his cardiac arrest. EKG shows left bundle branch block. Arterial ischemia cannot be ruled out. 2. Acute hypercapnic hypoxic respiratory failure. The patient has a history of obstructive sleep apnea with his obesity, obesity hypoventilation syndrome is likely. 3. Cardiogenic pulmonary edema. 4. History of chronic kidney disease. 5. Questionable history of pneumonia. 6. Apparent history of chronic obstructive pulmonary disease. [facility] [address] [place] [address] CONSULTATION Name: JOSS DAILEY Room #: 238-P ADM IN Gerhard#: [id number] Admission: 12/29/18 ������������������ Attend Phys: Karl Zarate MD Discharge: ������������������ Date of : 64 Report #: [id number] 7. History of coronary artery disease, undergoing stent placement in 2017 with a history of ischemic cardiomyopathy. 8. Diabetes mellitus. RECOMMENDATION: I will continue mechanical ventilation, agree with hypothermia protocol. Diuresis as tolerated, though the patient had been hypotensive since arrival to the ICU. He is currently on dopamine. The patient had been bradycardic, dopamine has improved his heart rate from 60s to 90s. I think it is reasonable to continue broad-spectrum antibiotics for presumed pneumonia, though heart failure is more likely. We will need to monitor neurologic status as there are concerns for possible hypoxic brain injury. Central line was attempted. Again, as mentioned above, I could not palpate a femoral pulse bilaterally despite Dinamap reading a systolic of 110-130. We will ask for assistance for central line placement with ultrasound guidance if possible. Peripheral IV has been started. Thank you for this consultation. ��������������������������������������������� <ELECTRONICALLY SIGNED> ���������������������������������������� By: Waldemar Elias MD ��������������������������������������������� 12/30/18 1750 0200 1458 Waldemar Elias MD /nt
--- NOTE | 2018-12-30 19:59 | EKG ---
[address] [place] [employer] [place] [address] ELECTROCARDIOGRAM REPORT Name: JOSS DAILEY Room #: 238-P ADM IN M.R.#: [id number] ������������������ Admission: 12/29/18 ������������������ Attend Phys: Karl Zarate MD Discharge: ������������������ Date of : 64 Report #: [id number] ����������������������������������������������������������������� [id number] THIS REPORT FOR: //name// [facility] Test Date: 2018-12-30 Test Time: 00:45:33 Pat Name: JOSS DAILEY Department: Room: 238 P Gender: M Remote Control Mirror Installer: dagoberto : 1960 Requested By: Waledmar Elias Order Number: [id number] MD: Corwin Travis Measurements Intervals [place] Rate: 63 P: 36 RI: 177 QRS: 49 QRSD: 154 T: 73 QT: 506 QTc: 519 Interpretive Statements Sinus rhythm Left bundle branch block Compared to ECG 05/31/2018 06:42:45 No significant changes Electronically Signed On 12-30-2018 19:59:38 ASSISTANT SIGNAL MAINTAINER by Corwin Travis [email or web address] ��������������������������������������������� <ELECTRONICALLY SIGNED> ���������������������������������������� By: Corwin Travis MD ��������������������������������������������� 12/30/181958 45 004 Corwin Travis MD /RENÉ
[2018-12-30 20:13] LABS: URINE BILIRUBIN NEGATIVE (Negative); URINE BLOOD 2+ (Negative); URINE CLARITY CLEAR; URINE COLOR YELLOW; URINE GLUCOSE-RANDOM* NEGATIVE (Negative); URINE KETONES NEGATIVE (Negative); URINE LEUKOCYTES-REFLEX NEGATIVE (Negative); URINE NITRITE-REFLEX NEGATIVE (Negative); URINE PROTEIN (DIPSTICK) 2+ (Negative); URINE SPECIFIC GRAVITY 1.025 (1.005-1.035); URINE UROBILINOGEN 0.2 E.U./dl (0.2-1.0)
--- NOTE | 2018-12-30 20:18 | NUR ---
END OF SHIFT NOTE. PT REMAINS ON HYPOTHERMIA PROTOCOL. CURRENTLY SEDATED ON DIPRIVAN. JERKING MOVEMENTS HAS STOPPED. LASIX GTT. POOR URINE OUTPUT. DUE TO REWARM AT 0100. OOZING SLIGHTLY FROM OLD IV STICKS. INSULIN GTT. STILL NO RESPONSE.
[2018-12-30 20:19] LABS: ABSOLUTE NEUTROPHILS 6.6 thou/uL (1.4-8.2); BASOPHILS 0.1 % (0.0-2.0); HEMOGLOBIN 11.9 gm/dL (14.0-18.0); LYMPHOCYTES 2.9 % (24.0-44.0); MCH 28.1 pg (26.0-34.0); MCV 85.3 fL (80.0-100.0); MONOCYTES 1.7 % (1.0-8.0); PLATELET COUNT 151 thou/uL (150-400); POLYS 95.3 % (36.0-66.0); RBC 4.22 mil/uL (4.50-6.00); RDW 17.9 % (10.5-14.5)
--- NOTE | 2018-12-30 20:20 | NUR ---
SEE PAPER CHARTING FOR VS AND GTT TITRATIONS.
[2018-12-30 20:27] LABS: CASTS None Seen /LPF (None Seen); MUCUS 0-3 Light strn/LPF (None Seen); SQUAMOUS None Seen /LPF (0-3)
[2018-12-30 20:29] LABS: BACTERIA-REFLEX None Seen /HPF (None Seen); CRYSTALS None Seen /LPF (None Seen); URINE RBC 0-2 Rare /HPF (0-2); URINE WBC-REFLEX None Seen /HPF (0-5)
[2018-12-30 20:38] LABS: APTT 38.9 Seconds (24.5-32.8); INR 1.3; PROTIME 13.5 Seconds (9.3-11.4)
[2018-12-31] VITALS (54 sets, daily range): BP systolic 93–168; BP diastolic 46–88
--- NOTE | 2018-12-31 01:00 | NUR ---
TEMP 32.6 STARTED ON PASSIVE REWARMING AT 0100 . REMAINS NONRESPONSIVE DOPAMINE GTT AT 1 MCG AND PROPOFOL GTT 20 MCG. SINUS RHYTHM. WILL CONT TO MONITOR.
[2018-12-31 02:15] LABS: ABSOLUTE NEUTROPHILS 9.3 thou/uL (1.4-8.2); BASOPHILS 0.1 % (0.0-2.0); HEMATOCRIT 33.8 % (42.0-52.0); HEMOGLOBIN 10.8 gm/dL (14.0-18.0); LYMPHOCYTES 1.9 % (24.0-44.0); MCV 84.4 fL (80.0-100.0); MONOCYTES 8.1 % (1.0-8.0); PLATELET COUNT 184 thou/uL (150-400); POLYS 89.9 % (36.0-66.0); RDW 17.6 % (10.5-14.5); WBC 10.3 thou/uL (4.0-11.0)
[2018-12-31 02:22] LABS: ALBUMIN 2.6 g/dL (3.4-5.0); APTT 38.3 Seconds (24.5-32.8); CALCIUM 8.1 mg/dL (8.5-10.1); CREATININE 3.2 mg/dL (0.7-1.3); INR 1.3; MAGNESIUM 2.1 mg/dL (1.8-2.4); PHOSPHORUS 5.5 mg/dL (2.5-4.9); PROTIME 13.4 Seconds (9.3-11.4)
[2018-12-31 02:24] LABS: POTASSIUM 4.2 mmol/L (3.5-5.1)
[2018-12-31 05:21] LABS: BE(vivo) 5.1 mmol/L (-2 to +3); HCO3 32.2 mmol/L (22.0-26.0); PCO2 60.4 mmHg (35.0-45.0); PO2 85.3 mmHg (80.0-100.0); pH 7.345 (7.360-7.450); sO2 95.7 % (92.0-98.0)
--- NOTE | 2018-12-31 06:00 | NUR ---
REMAINS INTUBATED. PROPOFOL AND DOPAMINE GTTS TITRATED OFF. SUCTIONBED FOR A MOD AMT PINK TO BLOOD TINGED SPUTUM FROM ET TUBE AND A MOD AMT BLOODY ORAL SECRETIONS. TEMP 97.5 HYPOTHERMIA GOAL MET. ELISABETH CONBT TO MONITOR.
--- NOTE | 2018-12-31 06:00 | NUR ---
INSULIN GTT AT 8 UNITS NOW ACCUCHECK 123 LASIX GTT AT 20 MG 700 CC UO AND 400 CC NG TUBE DRAINAGE THIS SHIFT. COMPETE BED BATH GIVEN. HAD A LARGE SOFT BROWN STOOL. REMAINS UBNRESPONSIVE. CONT WITH REWARMING.
[2018-12-31 06:42] LABS: HEMATOCRIT 32.6 % (42.0-52.0); HEMOGLOBIN 10.6 gm/dL (14.0-18.0); MCH 27.7 pg (26.0-34.0); MCHC 32.6 g/dL (28.0-37.0); MCV 84.9 fL (80.0-100.0); RBC 3.84 mil/uL (4.50-6.00); RDW 17.7 % (10.5-14.5); WBC 11.6 thou/uL (4.0-11.0)
[2018-12-31 06:49] LABS: CREATININE 3.3 mg/dL (0.7-1.3); POTASSIUM 4.7 mmol/L (3.5-5.1)
--- NOTE | 2018-12-31 12:53 | HC ---
[facility] [address] [place] [address] CONSULTATION Name: ASHLIEJOSS Room #: 238-P ADM IN M.R.#: [id number] Admission: 12/29/18 ������������������ Attend Phys: Jazmin Jensen MD Discharge: ������������������ Date of : 64 Report #: [id number] THIS REPORT FOR: //name// CC: Karl DECKER DATE OF SERVICE: 12/30/2018 HISTORY OF PRESENT ILLNESS: The patient is a 58-year-old male who is now on a cooling protocol. Apparently, he was transferred here from [facility]. En route, the patient became unresponsive and emergency services stopped at [facility]. Once the patient was stabilized, he was then brought up to [facility]. While en route, the patient became pulseless then developed asystole, then atrial fibrillation. He was given epinephrine and shocked. Once he was stabilized, the transfer to [place] continued. Currently, the patient is on a cooling protocol, had been given vecuronium. He is also on propofol 20 mcg. According to the nurse, the warming process will begin at approximately 10:00 p.m. this evening. The patient has a past medical history of ankle fusion in October. His stay was complicated by congestive heart failure and acute renal failure and he spent approximately 20 days in the hospital, he was then transferred to a rehab center in [place], [place]. One week later, he developed congestive heart failure and was admitted to [facility] and he spent 4 days there and then was transferred back to rehab. On Monday, he became ill again and was readmitted to [place] for complaints of shortness of air. PAST MEDICAL HISTORY: Coronary artery disease, congestive heart failure, restless leg syndrome, gastroesophageal reflux, hyperlipidemia, diabetes. PAST SURGICAL HISTORY: Coronary artery stents, right ankle surgery. MEDICATIONS: At home include Lyrica 50 mg at bedtime, Seroquel 50 mg at bedtime, Mirapex 0.25 mg at bedtime, Protonix 40 mg daily, sotalol 80 mg b.i.d., spironolactone 25 mg b.i.d., Eliquis 5 mg b.i.d., Lipitor 40 mg daily, Plavix 75 mg daily, Humulin insulin 55 units subq b.i.d., ramipril 5 mg daily, torsemide 40 mg daily. ALLERGIES: NONSTEROIDAL ANTI-INFLAMMATORIES, ASPIRIN, ALBUTEROL, LOSARTAN. PHYSICAL EXAMINATION: VITAL SIGNS: Temperature 34 degrees, heart rate 53, oxygen saturation 100% on room air, respirations 22, blood pressure 172/95. [address] [address] CONSULTATION Name: JOSS DAILEYN Room #: 238-P [facility] IN M.R.#: [id number] Admission: 12/29/18 ������������������ Attend Phys: Jazmin Jensen MD Discharge: ������������������ Date of : 64 Report #: [id number] LABORATORY DATA: White blood cell count 7.8, hemoglobin 11.2, hematocrit 35.8, MCV 86.5, platelet count 166,000. Coagulation: PT 13.5, PTT 38.4. Sodium 132, potassium 5.3, chloride 92, carbon dioxide 33, BUN 61, creatinine 2.8, GFR 24. Glucose 373. Lactic acid 1.8, calcium 8.1, phosphorus 6.3, magnesium 2.1, total bilirubin 1.5, AST 103, ALT 79, alkaline phosphatase 157. NEUROLOGIC: Pupils pinpoint. No oculocephalic or corneal reflexes are present. There are no spontaneous movements of the extremities. The patient is on propofol. The nurse stated to me that when the patient was not on sedation, he had some jerking movements in the proximal upper extremities. IMPRESSION: This patient may have had anoxic injury. However, at this point, we cannot know the outcome. He will begin the warming process at 10:00 p.m. and tomorrow, I will order an electroencephalogram if we could try to take the patient off propofol prior to the EEG that would be very helpful, so we can get a better idea as to the patient's prognosis. The patient will be seen by either Dr. Munoz or Dr. Harper tomorrow. The patient may also need either a CT scan of the head or an MRI of the head, depending on his examination tomorrow and the results of the EEG. ��������������������������������������������� <ELECTRONICALLY SIGNED> ���������������������������������������� By: Aby Gardner DO ��������������������������������������������� 12/31/18 1253 1436 0558 Aby Gardner DO /nt
--- NOTE | 2018-12-31 13:35 | NUR ---
CM ASSESSMENT: CASE OPENED FOR DC PLANNING. CLINICAL INFO REVIEWED. PT ADMITTED POST CODE, ON VENT, HYPOTHERMIA PROTOCOL DONE AND REWARMED NOW WITH PLAN FOR EEG TODAY. PT LIVES WITH SPOUSE PETTY IN HOUSE IN [place], [place]. PT HAS HOME O2 AND TRILOGY IN PLACE. PCP IS JEANNE DECKER. UNCLEAR DC PLAN AT PRESENT, WILL NEED TO EVAL NEURO STATUS AND MAKE PLANS BASED ON MEDICAL ISSUES.
--- NOTE | 2018-12-31 14:59 | EKG ---
[address] [address] ELECTROCARDIOGRAM REPORT Name: JOSS DAILEY Room #: 238-P ADM IN M.R.#: [id number] ������������������ Admission: 12/29/18 ������������������ Attend Phys: Jazmin Jensen MD Discharge: ������������������ Date of : 64 Report #: [id number] ����������������������������������������������������������������� [id number] THIS REPORT FOR: //name// [facility] Test Date: 2018-12-31 Test Time: 08:47:30 Pat Name: JOSS DAILEY Department: Room: 238 P Gender: M Electrical Assembly Supervisor: JUAN CARLOS : 1960 Requested By: Chely Fields Order Number: [id number] MD: Jesus Rodrigez Measurements Intervals [place] Rate: 90 P: 28 [place]: 164 QRS: 33 QRSD: 147 T: 129 QT: 437 QTc: 535 Interpretive Statements Sinus rhythm Left bundle branch block Compared to ECG 12/30/2018 00:45:33 No significant changes Electronically Signed On 12-31-2018 14:59:46 PLC ENGINEER by Jesus Rodrigez [email or web address] ��������������������������������������������� <ELECTRONICALLY SIGNED> ���������������������������������������� By: Jesus Rodrigez MD ��������������������������������������������� 12/31/18 1459 6 6 Jesus Rodrigez MD /RENÉ
--- NOTE | 2018-12-31 17:13 | NUR ---
PETTY DAILEY, , INFORMED RN THAT SHE WANTED A DNR STATUS. CALL PLACED TO DR. SHARMA.
--- NOTE | 2018-12-31 17:42 | NUR ---
ATTEMPTED TO PAGE DR. WRIGHT X 2 TO NOTIFY OF VANC0 TROUGH-32. PHONE IS NOT TURNING OVER TO THE ANSWERING SERVICE. VANCO DOSE HELD AT THIS TIME.
--- NOTE | 2018-12-31 19:15 | NUR ---
SHIFT SUMMARY: PT RESPONDS TO CORNEAL REFLEX, NO RESPONSE TO DEEP PAIN, COUGH/GAG REFLEX, ALL EXTREMITIES FLACCID, BREATHING ABOVE VENT SET RATE, SR, L CHEST TLC SITE BLOODY- REINFORCED, SUCTIONING MUCUSY CLOTS FROM NOSE WHEN PT TRANSFERRED TO BIG BOY BED, BLOOD IN BACK OF MOUTH RELATED TO POST NASAL BLEEDING, TOLERATING VENT SCANT FROTHY VERY THIN SECRETION NOTED IN ETT WHICH SPONTANEOUSLY RESOLVED, NG PATENT WITH BILE GREEN DRAINAGE, MACK WITH LARGE AMOUNT URINE OUTPUT RELATED TO LASIX GTT. BLOOD GLUCOSE CONTROLLED WITH INSULIN GTT. DR. OHARA REVIEWED EEG RESULTS, ASSESSED PT, THEN SPOKE WITH , DAUGHTER AND OTHER FAMILY MEMBERS ON PT STATUS. LATER REQUESTED DNR STATUS, DR. SHARMA NOTIFIED OF HER WISHES, NO CODE STATUS IMPLEMENTED. CAST REMAINS ON R LOWER EXTREMITY, TOES WITH CAP REFILL LESS THAN 3 SECONDS. REPORT TO MILAD JOSHI.
[2019-01-01] VITALS (43 sets, daily range): BP systolic 102–143; BP diastolic 53–72
[2019-01-01 04:27] LABS: HEMATOCRIT 30.4 % (42.0-52.0); HEMOGLOBIN 9.9 gm/dL (14.0-18.0); MCH 27.4 pg (26.0-34.0); MCHC 32.4 g/dL (28.0-37.0); MCV 84.3 fL (80.0-100.0); RBC 3.61 mil/uL (4.50-6.00); RDW 18.8 % (10.5-14.5); WBC 12.2 thou/uL (4.0-11.0)
[2019-01-01 04:41] LABS: ALBUMIN 2.4 g/dL (3.4-5.0); CALCIUM 7.5 mg/dL (8.5-10.1); PHOSPHORUS 6.7 mg/dL (2.5-4.9); POTASSIUM 5.2 mmol/L (3.5-5.1)
[2019-01-01 04:43] LABS: CREATININE 4.3 mg/dL (0.7-1.3)
[2019-01-02] VITALS (30 sets, daily range): BP systolic 79–178; BP diastolic 35–79
[2019-01-02 01:47] LABS: HEMATOCRIT 36.9 % (42.0-52.0); HEMOGLOBIN 11.6 gm/dL (14.0-18.0); MCH 26.5 pg (26.0-34.0); MCHC 31.3 g/dL (28.0-37.0); MCV 84.6 fL (80.0-100.0); RBC 4.37 mil/uL (4.50-6.00); RDW 17.9 % (10.5-14.5); WBC 13.4 thou/uL (4.0-11.0)
[2019-01-02 01:52] LABS: ALBUMIN 2.9 g/dL (3.4-5.0); CREATININE 4.9 mg/dL (0.7-1.3); PHOSPHORUS 7.5 mg/dL (2.5-4.9)
[2019-01-02 01:55] LABS: POTASSIUM 5.6 mmol/L (3.5-5.1)
[2019-01-02 02:21] LABS: ALBUMIN 2.9 g/dL (3.4-5.0); CALCIUM 7.8 mg/dL (8.5-10.1); CREATININE 4.9 mg/dL (0.7-1.3); MAGNESIUM 2.4 mg/dL (1.8-2.4); TOTAL BILIRUBIN 0.7 mg/dL (<0.1-1.0); TOTAL PROTEIN 7.5 g/dL (6.4-8.2)
[2019-01-02 02:45] LABS: POTASSIUM 5.6 mmol/L (3.5-5.1)
--- NOTE | 2019-01-02 05:08 | NUR ---
SHIFT NOTE PT ASSESSMENTS AND VITAL SIGNS CHARTED. PT TURNED Q2H AND PRN. PT HAD SOME S/SX OF PAIN AND MEDS WERE GIVEN ORDERED. PT HAD NO S/SX OF SOA, CHEST PAIN, OR NV. AROUND 0040 WHILE PT WAS BEING CLEANED UP PT STARTED HAVING STRONGER TREMORS, PUPILS WERE UNEQUAL WITH ONE AT 4MM AND ONE AT 3MM SO MEDS GIVEN ORDERED. PHYSICIAN NOTIFED AND ORDERS PLACED PER PHYSICIANS REQUEST. PT MACK TO DD. FAMILY AT BEDSIDE. PT NG TO LIS THOUGH OUT SHIFT. PT SUCTIONED THOUGH OUT SHIFT AND ORAL CARE PERFORMED Q2H. WILL CONTINUE TO MONITOR TILL THE END OF THE SHIFT.
[2019-01-02 10:20] LABS: BE(vivo) 6.7 mmol/L (-2 to +3); HCO3 32.4 mmol/L (22.0-26.0); PCO2 51.5 mmHg (35.0-45.0); PO2 182.2 mmHg (80.0-100.0); pH 7.417 (7.360-7.450); sO2 99.2 % (92.0-98.0)
--- NOTE | 2019-01-02 18:00 | NUR ---
Pt was extubated at 1615 by RT. He remains on an ativan gtt at 10mg/hr for comfort and seizure activity. Has recieved 30mg of morphine since extubation and 4mg iv push ativan for comfort, air hunger, and seizure. Pt o2 sats are inb the mid 80's and now resting comfortly.
[2019-01-03] VITALS: BP 64/25
--- NOTE | 2019-01-03 05:34 | NUR ---
Pt made comfort care and family at bedside all night. Pt pronounced at 0345 with no respirations and no audible heart tones, see rhythm strip. Family support provided.
== END 2019-01-03 03:45 | DRG 871 ==
LOC: 2N 16:36 → ICU 23:55
PROVIDERS: Hospitalist; Internal Medicine Cardiovascular Disease; Internal Medicine Infectious Disease; Internal Medicine Pulmonary Disease; Nurse Practitioner Family; Pediatrics; Psychiatry & Neurology Neuromuscular Medicine; ADMIT Internal Medicine
PROC: 0BH17EZ Insertion of Endotracheal Airway into Trachea, Via Natural or Artificial Opening (ICD-10-PCS; principal; 2018-12-30)
PROC: 5A1945Z Respiratory Ventilation, 24-96 Consecutive Hours (ICD-10-PCS; principal; 2018-12-30)
DX: A41.9 Sepsis, unspecified organism (principal); J96.01 Acute respiratory failure with hypoxia; J18.9 Pneumonia, unspecified organism; I50.33 Acute on chronic diastolic (congestive) heart failure; J96.02 Acute respiratory failure with hypercapnia; N17.9 Acute kidney failure, unspecified; A52.16 Charcot's arthropathy (tabetic); E66.2 Morbid (severe) obesity with alveolar hypoventilation; G93.1 Anoxic brain damage, not elsewhere classified; Z68.43 Body mass index [BMI] 50.0-59.9, adult; J44.0 Chronic obstructive pulmonary disease with (acute) lower respiratory infection; I13.0 Hypertensive heart and chronic kidney disease with heart failure and stage 1 through stage 4 chronic kidney disease, or unspecified chronic kidney disease; I25.10 Atherosclerotic heart disease of native coronary artery without angina pectoris; R65.20 Severe sepsis without septic shock; I48.0 Paroxysmal atrial fibrillation; E11.22 Type 2 diabetes mellitus with diabetic chronic kidney disease; N18.9 Chronic kidney disease, unspecified; I25.5 Ischemic cardiomyopathy; E78.5 Hyperlipidemia, unspecified; G25.81 Restless legs syndrome; I49.01 Ventricular fibrillation; E87.5 Hyperkalemia; T68.XXXA Hypothermia, initial encounter; Z51.5 Encounter for palliative care; I95.9 Hypotension, unspecified; G40.909 Epilepsy, unspecified, not intractable, without status epilepticus; Z88.6 Allergy status to analgesic agent; Z83.3 Family history of diabetes mellitus; Z95.5 Presence of coronary angioplasty implant and graft; Z79.899 Other long term (current) drug therapy
CPT/HCPCS: 10078